=== PATIENT | female | born 1935 | race Caucasian/White ===

== ENCOUNTER 2019-09-24 08:42 | Day surgery (SDC) | payer OTHER ==
[2019-09-19 16:43] VITALS: BMI 20.5
[2019-09-24] MEDS: PHENYLEPHRINE 2.5% OPHTH SOLN 15 ML BOTTLE ONE ×3 (09:55→10:05)
[2019-09-24] MEDS: CIPROFLOXACIN 0.3% EYE DROPS 5 ML BOTTLE ONE ×3 (09:55→10:05)
[2019-09-24] MEDS: TROPICAMIDE 1% OPHTH SOLN 15 ML BOTTLE ONE ×3 (09:55→10:05)
[2019-09-24] MEDS: CYCLOPENTOLATE 2% OPHTH SOLN 2 ML BOTTLE ONE ×3 (09:55→10:05)
[2019-09-24] MEDS ORDERED: LIDOCAINE 1% P/F 10 MG/ML VIAL ONE (11:30)
[2019-09-24] MEDS ORDERED: TETRACAINE 0.5% OPHTH SOLN 2 ML BOTTLE ONE (11:30)
[2019-09-24] MEDS ORDERED: BSS (NA/CA/MG/K) BALANCED SALT SOLUTION OPHTH SOLN 15 ML BOTTLE ONE (11:30)
[2019-09-24] MEDS ORDERED: CARBACHOL 0.01% INTRA-OCULAR 1.5 ML VIAL ONE (11:31)
[2019-09-24] MEDS ORDERED: NEO/POLYMYX B SULF/DEXAMETH OPHTHALMIC 5ML BOTTLE ONE (11:31)
[2019-09-24] MEDS ORDERED: MIDAZOLAM HCL 2 MG/2 ML SINGLE DOSE VIAL ONE (11:32)
[2019-09-24 12:45] VITALS: BP 159/81; PULSE 72; TEMP 98.2
--- NOTE | 2019-09-24 13:10 | OP ---
DATE OF OPERATION: 09/24/2019 OPERATIVE PROCEDURE: Lens phacoemulsification with posterior chamber intraocular lens placement, right eye. PREOPERATIVE DIAGNOSIS: Visually significant cataract of right eye. POSTOPERATIVE DIAGNOSIS: Visually significant cataract of right eye. SURGEON: Guido Fitzpatrick MD ANESTHESIA: MAC. PROCEDURE: The patient was brought to the operating room and placed under monitored anesthesia care by Anesthesia. A drop of tetracaine was then placed over the right eye. The patient was then prepped and draped in the usual sterile manner. A speculum was then placed over the right eye. The eye was then well irrigated with copious amounts of BSS (balanced salt solution). The operating microscope was then moved into position. A paracentesis was performed using a 15-degree blade. At this point 0.5 mL of 1% preservative free-lidocaine was injected into the anterior chamber. Amvisc Plus was then injected into the anterior chamber. A clear corneal incision was then formed using a 2.2-mm keratome. A capsulorrhexis was then performed in a continuous circular fashion beginning with a cystotome completed with an Utratas forceps. Hydrodissection was then performed using BSS on a cannula. The phaco probe was then introduced through the corneal wound and the cataract was removed using the phaco chop technique. Approximately 3 seconds of absolute phaco time was used. The remaining cortex was then removed using irrigation and aspiration with an I/A probe. The capsule was then filled with regular Amvisc and the capsule was noted to be intact. A previously selected foldable posterior chamber intraocular lens was then injected into the capsule through the corneal wound using a lens injector. It was then dialed into position using a [place]inskey hook. The Amvisc was then removed using irrigation and aspiration. Miostat was then injected through the paracentesis to constrict the pupil. The paracentesis and corneal wound were then hydrated and noted to be watertight. A drop of Maxitrol was then placed over the eye. The speculum was removed and clear shield was taped over the eye. The patient tolerated the procedure well and there were no surgical complications. The patient was asked to follow up in my office the next day. GUIDO FITZPATRICK M.D. [id number]
== END 2019-09-24 12:45 | disposition home or self-care (01) ==
LOC: FASU 08:42
PROVIDERS: ATTEND Ophthalmology
PROC: 08RJ3JZ Replacement of Right Lens with Synthetic Substitute, Percutaneous Approach (ICD-10-PCS; principal; 2019-09-24 11:48)
DX: H26.8 Other specified cataract (principal)

== ENCOUNTER 2019-11-12 07:39 | Day surgery (SDC) | payer OTHER ==
[2019-11-10 15:08] VITALS: BMI 20.9
[2019-11-12] MEDS: CIPROFLOXACIN 0.3% EYE DROPS 5 ML BOTTLE ONE ×3 (08:45→08:55)
[2019-11-12] MEDS: TROPICAMIDE 1% OPHTH SOLN 15 ML BOTTLE ONE ×3 (08:45→08:55)
[2019-11-12] MEDS: PHENYLEPHRINE 2.5% OPHTH SOLN 15 ML BOTTLE ONE ×3 (08:45→08:55)
[2019-11-12] MEDS: CYCLOPENTOLATE 2% OPHTH SOLN 2 ML BOTTLE ONE ×3 (08:45→08:55)
[2019-11-12] MEDS ORDERED: MIDAZOLAM HCL 2 MG/2 ML SINGLE DOSE VIAL ONE (09:33)
[2019-11-12] MEDS ORDERED: LIDOCAINE 1% P/F 10 MG/ML VIAL ONE (09:44)
[2019-11-12] MEDS ORDERED: CARBACHOL 0.01% INTRA-OCULAR 1.5 ML VIAL ONE (09:45)
[2019-11-12] MEDS ORDERED: NEO/POLYMYX B SULF/DEXAMETH OPHTHALMIC 5ML BOTTLE ONE (09:45)
[2019-11-12] MEDS ORDERED: TETRACAINE 0.5% OPHTH SOLN 2 ML BOTTLE ONE (09:45)
[2019-11-12] MEDS ORDERED: EPINEPHrine/PF 1 MG/1 ML (1:1,000) AMPULE ONE (09:45)
[2019-11-12] MEDS ORDERED: BSS (NA/CA/MG/K) BALANCED SALT SOLUTION OPHTH SOLN 15 ML BOTTLE ONE (09:45)
[2019-11-12 11:00] VITALS: BP 144/76; PULSE 81; TEMP 97.7
--- NOTE | 2019-11-12 20:58 | OP ---
DATE OF OPERATION: 11/12/2019 OPERATIVE PROCEDURE: Lysis of Posterior Iris Lens Synechia and Lens Phacoemulsification with Posterior Chamber Intraocular Lens Placement, Left Eye PREOPERATIVE DIAGNOSIS: Visually Significant Cataract and Posterior Synechia of Left Eye POSTOPERATIVE DIAGNOSIS: Visually Significant Cataract and Posterior Synechia of Left Eye SURGEON: Guido Fitzpatrick M.D. ANESTHESIA: MAC ANESTHESIOLOGIST: PROCEDURE: The patient was brought to the operating room and placed under monitored anesthesia care by Anesthesia. A drop of Tetracaine was then placed over the left eye. The patient was then prepped and draped in the usual sterile manner. A speculum was then placed over the left eye. The eye was then well irrigated with copious amounts of BSS (balanced salt solution). The operating microscope was then moved into position. A paracentesis was performed using a 15 degree blade. At this point, 0.5 mL of 1% preservative-free lidocaine was injected into the anterior chamber. Amvisc plus was then injected into the anterior chamber. A clear corneal incision was then formed using a 2.2 mm keratome. A cyclodialysis spatula was then used to break the posterior synechia. Two [place] iris hooks were then used to stretch the iris. More Amvisc plus was then injected into the anterior chamber. A capsulorrhexis was then performed in a continuous circular fashion beginning with a cystotome and completed with an Utrata's forceps. Hydrodissection was then performed using BSS on a cannula. The phaco probe was then introduced through the corneal wound and the cataract was removed using the phaco chop technique. Approximately 3 seconds of absolute phaco time was used. The remaining cortex was then removed using irrigation and aspiration with an I/A probe. The capsule was then filled with regular Amvisc and the capsule was noted to be intact. A previously selected foldable posterior chamber intraocular lens was then injected into the capsule through the corneal wound using a lens injector. It was then dialed into position using a Sinskey hook. The Amvisc was then removed using irrigation and aspiration. Miostat was then injected through the paracentesis to constrict the pupil. The paracentesis and corneal wound were then hydrated and noted to be water tight. A drop of Maxitrol was then placed over the eye. The speculum was removed and clear shield was taped over the eye. The patient tolerated the procedure well and there were no surgical complications. The patient was asked to follow up in my office the next day. GUIDO FITZPATRICK M.D. [id number]
== END 2019-11-12 11:00 | disposition home or self-care (01) ==
LOC: FASU 07:39
PROVIDERS: ATTEND Ophthalmology
PROC: 08RK3JZ Replacement of Left Lens with Synthetic Substitute, Percutaneous Approach (ICD-10-PCS; principal; 2019-11-12 10:03)
DX: H26.8 Other specified cataract (principal); H21.542 Posterior synechiae (iris), left eye

== ENCOUNTER 2020-06-16 04:53 | Day surgery (SDC) | payer OTHER ==
[2020-06-15 14:33] VITALS: BMI 18.8
[2020-06-16] MEDS ORDERED: ERTAPENEM SODIUM 1 GM VIAL ONE (06:44)
[2020-06-16] MEDS ORDERED: MIDAZOLAM HCL 2 MG/2 ML SINGLE DOSE VIAL ONE (08:02)
[2020-06-16] MEDS ORDERED: PROPOFOL 20 ML ONE (08:02)
[2020-06-16] MEDS ORDERED: ROCURONIUM BROMIDE 50 MG/5 ML SYRINGE ONE (08:02)
[2020-06-16] MEDS ORDERED: LIDOCAINE HCL/PF 2% SDV 5ML VIAL ONE (08:05)
[2020-06-16] MEDS ORDERED: SODIUM CHLORIDE 0.9% P/F 10 ML VIAL IJ ONE (08:31)
[2020-06-16] MEDS ORDERED: ERTAPENEM SODIUM 1 GM VIAL IVPB ONE (08:33)
[2020-06-16] MEDS ORDERED: MEROPENEM 1 GM VIAL (RESTRICTED TO ID) IVPB ONE (08:33)
[2020-06-16] MEDS ORDERED: ONDANSETRON 4 MG/2 ML VIAL ONE ×2 (08:34→10:54)
[2020-06-16] MEDS ORDERED: DEXAMETHASONE SOD PHOSPHATE 4 MG/1 ML VIAL ONE (08:34)
[2020-06-16] MEDS ORDERED: GLYCOPYRROLATE 0.2 MG/1 ML VIAL ONE (09:01)
[2020-06-16] MEDS ORDERED: NEOSTIGMINE METHYLSULFATE 0.5 MG/1 ML - 10 ML MDV ONE (09:02)
[2020-06-16] MEDS ORDERED: METOPROLOL TARTRATE 5 MG/5 ML VIAL ONE (09:09)
[2020-06-16] MEDS ORDERED: ONDANSETRON 4 MG/2 ML VIAL IVPUSH PRN ×2 (09:24→11:19)
[2020-06-16] MEDS ORDERED: PROMETHAZINE HCL 25 MG/1 ML VIAL IVPB PRN (09:24)
[2020-06-16] MEDS ORDERED: LABETALOL HCL 5 MG/1 ML (100MG/20 ML VIAL) IVPUSH ONE (09:25)
[2020-06-16] MEDS ORDERED: hydrALAZINE HCL 20 MG/ML VIAL ONE (10:51)
[2020-06-16] MEDS ORDERED: hydrALAZINE HCL 20 MG/ML VIAL IVPUSH ONE (10:54)
[2020-06-16] MEDS ORDERED: MEPERIDINE HCL 25 MG/ML VIAL IVPUSH ONE (10:55)
[2020-06-16] MEDS: LACTATED RINGERS SOLUTION 1,000 ML IV SCH ×2 (11:00→11:12)
[2020-06-16] MEDS ORDERED: ACETAMINOPHEN 325 MG TABLET (FP) PO PRN (11:19)
[2020-06-16] MEDS ORDERED: morphine SULFATE 4 MG/ML VIAL IVPUSH PRN (11:19)
[2020-06-16] MEDS: D5-1/2NS+20 MEQ KCL - 20 MEQ/1,000 ML INFUS.BAG IV SCH ×2 (12:20→21:18)
[2020-06-16] MEDS: oxyCODONE HCL 5 MG TABLET PO PRN ×2 (12:54→21:14)
--- NOTE | 2020-06-16 13:25 | HP ---
DATE OF ADMISSION: 06/16/2020 HISTORY: This is an 84-year-old woman who presents for laparoscopic removal of her gallbladder. Patient initially presented in January of this year with not feeling well and with abdominal pain. She was worked up at that time and on ultrasound evaluation was noted to have cholelithiasis. Additionally, a CAT scan performed that same day demonstrated in addition to her gallstones, a biliary ductal dilatation with her CBD measuring up to 1.3 cm in size. She was also noted at that time on laboratory studies to have transaminasemia with her alkaline phosphatase measuring 408, her ALT 189, her AST 164, and a normal bilirubin of 1.3. Patient underwent an ERCP where a bile duct stent was placed after she was identified as having multiple large gallstones. Patient recently on May 03, 2020, underwent repeat ERCP where her bile duct stent was removed. Sphincterotomy and stone extraction were performed. Final cholangiogram reported by Dr. Porras of the GI service demonstrated no residual CBD stones. Patient is noted to have large stone load within her gallbladder, and she was referred for cholecystectomy. On close questioning, the patient denies a fatty food intolerance. There has been no unintentional weight loss. PAST MEDICAL HISTORY: Patient has no significant past medical history. No history of hypertension, renal, respiratory, nor hepatic insufficiency. Patient does have eye disease and is followed by her wastewater analyst. PAST SURGICAL HISTORY: Nil. ALLERGIES: None known. CURRENT MEDICATIONS: Tylenol only. SOCIAL HISTORY: Negative tobacco, negative alcohol. FAMILY HISTORY: Nil. REVIEW OF SYSTEMS: Nil. PHYSICAL EXAMINATION: Abdomen soft, nontender, with no palpable findings. IMPRESSION: Cholelithiasis (large stone load). Recent presentation of choledocholithiasis requiring bile duct intervention of the ERCP. Bile duct clear at this time. PLAN: Laparoscopic cholecystectomy/possible open cholecystectomy. Indications, alternatives, possible complications reviewed. Consent obtained. Patient to be seen preoperatively by Dr. Johnson. Please refer to his notes for those medical details. JOANNE MARQUEZ M.D. [id number] cc: Timbo Porras MD Alex MTDD
--- NOTE | 2020-06-16 14:51 | OP ---
DATE OF OPERATION: 06/16/2020 PREOPERATIVE DIAGNOSIS: Chronic cholecystitis/cholelithiasis/recent choledocholithiasis. POSTOPERATIVE DIAGNOSIS: Chronic cholecystitis/cholelithiasis/recent choledocholithiasis. PROCEDURE: Laparoscopic cholecystectomy. OPERATING SURGEON: Casa Magdaleno MD SUPERVISOR FURNACE ROOM: Franco Marmolejo DO ANESTHESIA: Jem Barragan MD (general) HISTORY: An 84-year-old woman who presents for laparoscopic removal of her gallbladder as ongoing management of her biliary disease in the face of cholelithiasis and chronic cholecystitis. Indications, alternatives, possible complications were reviewed. Consent obtained. PROCEDURE: With the patient in the supine position, under general anesthesia, the abdomen was prepped and draped in sterile fashion using chlorhexidine. A small incision was made just beneath the umbilicus through which a Veress needle was placed into the abdominal cavity. The abdominal cavity was insufflated to an adequate pressure and volume using CO2 gas. The Veress needle was removed. An 11-mm trocar port placed through the infraumbilical wound into the abdominal cavity. The camera was passed through this port and intraabdominal cavity visualized. Under direct vision two 5-mm right anterolateral ports were placed through which clamps were passed to maintain traction on the gallbladder and aid in the dissection. An 11-mm port was placed in the epigastrium through which the operating instruments were passed. A limited exploration of the abdomen revealed a floppy relatively pale, thin- walled gallbladder containing stones. No other significant findings noted. The peritoneum of the hepatoduodenal ligament was incised. The cystic duct was identified. The cystic duct/bile duct junction was identified. The cystic duct was doubly clipped proximally and distally and divided. The adjacent cystic artery was managed similarly. The gallbladder was then removed from the gallbladder bed, lysing its peritoneal attachment to the liver. It was ultimately freed. The bed was inspected and adequate hemostasis ensured. The right upper quadrant was irrigated. The irrigant retrieved. All ports were then removed under direct vision. No bleeding identified at the port sites. The gallbladder was delivered through the infraumbilical wound without difficulty. The pneumoperitoneum was allowed to escape. The fascia at the umbilicus was approximated using interrupted 0 Vicryl sutures. All skin wounds were closed using subcuticular 4-0 Biosyn sutures. Needle, sponge and instrument count correct. ESTIMATED BLOOD LOSS: Minimal. SPECIMEN: Gallbladder. DRAINS: None. Patient tolerated the procedure and the procedure was terminated. Fabrizio [id number] MTDD
[2020-06-16] MEDS: FAMOTIDINE 20 MG/50 ML IVPB 20 MG/50 ML MG IVPB SCH (21:14)
[2020-06-17] MEDS: oxyCODONE HCL 5 MG TABLET PO PRN (08:18)
[2020-06-17 09:01] VITALS: BP 151/73; PULSE 75; TEMP 97.5
[2020-06-17] MEDS: FAMOTIDINE 20 MG/50 ML IVPB 20 MG/50 ML MG IVPB SCH (09:26)
[2020-06-17] MEDS ORDERED: ENOXAPARIN NA (PORCINE) 30 MG/0.3 ML DISP.SYRIN SQ SCH (10:00)
[2020-06-17] MEDS: LACTATED RINGERS SOLUTION 1,000 ML IV SCH (11:00)
--- NOTE | 2020-06-18 13:58 | PATH ---
Surgical Pathology Report Patient Name: KRISTEN CAMP [facility]. Rec. #: [id number] /Age/Gender: 1935 (Age: 84) / F Account: [id number] Location: AMBULATORY SURG Taken: 06/16/2020 Received: 06/16/2020 Reported: 06/18/2020 Physicians: Casa Magdaleno M.D. Specimen(s) Received GALLBLADDER Clinical History Calculus of gallbladder with acute cholecystitis without obstruction Final Diagnosis GALLBLADDER, LAPAROSCOPIC CHOLECYSTECTOMY: FOCAL ACUTE AND CHRONIC CHOLECYSTITIS WITH CHOLELITHIASIS. Electronically Signed Magalis Galvez M.D. Gross Description Received in formalin, labeled "gallbladder," is a 9.3 x 2.3 x 2.2 cm. gallbladder with a 0.3 cm. in length portion of cystic duct attached. The outer surface is atkinson rubin and varies from smooth to shaggy. The lumen contains green, tenacious bile as well as multiple irregular to fragmented choleliths ranging from 0.1-0.7 cm in greatest dimension. The mucosa is green and velvety. The wall of the gallbladder averages 0.1 cm. in thickness. Scientific Informatics Project Leader sections are submitted in one cassette. [facility]
== END 2020-06-17 11:33 | disposition home or self-care (01) ==
LOC: JASU-SURG 04:53 → JASUSAT 04:53 → J6S 12:31 → JASUSAT 06-17 11:33
PROVIDERS: ATTEND Surgery
PROC: 0FT44ZZ Resection of Gallbladder, Percutaneous Endoscopic Approach (ICD-10-PCS; principal; 2020-06-16 08:00)
DX: K80.10 Calculus of gallbladder with chronic cholecystitis without obstruction (principal)
CPT/HCPCS: 86850; 86900; 86901; 88304-TC; 94010; 94760